=== PATIENT | female | born 1995 | race Caucasian/White ===

== ENCOUNTER 2016-12-10 06:48 | Emergency (ER) | payer OTHER ==
[~2016-12-10 06:48] MED LIST: COLACE 100MG C100 MG PO; IBUPROFEN600 MG PO; NORCO 5-325 TA1 EACH PO
[2016-12-10 07:53] LABS: HEMOGLOBIN 13.5 gm/dl (12.3-15.3); RED BLOOD COUNT 4.77 M/UL (4.00-5.10); WHITE BLOOD COUNT 5.6 K/UL (4.5-11.0)
[2016-12-10 08:21] LABS: BUN/CREATININE RATIO 15 (0-10)
== END 2016-12-10 10:56 | disposition home or self-care (01) ==
LOC: ER1 06:48
PROVIDERS: Emergency Medicine
DX: N20.0 Calculus of kidney (principal); F17.200 Nicotine dependence, unspecified, uncomplicated
CPT/HCPCS: 36415; 74000; 80053; 81001; 82150; 83690; 84703; 85025; 96374; 96375; 99284; J1885; J2405; J7030

== ENCOUNTER 2021-11-09 11:45 | Emergency (ER) | payer OTHER ==
[~2021-11-09 11:45] MED LIST changes: +MACROBID 100 M100 MG PO; +OMNICEF 300 MG300 MG PO; +PYRIDIUM200 MG PO
[2021-11-09 12:20] LABS: HEMOGLOBIN 13.5 gm/dl (12.3-15.3); RED BLOOD COUNT 4.31 M/UL (4.00-5.10); WHITE BLOOD COUNT 13.1 K/UL (4.5-11.0)
[2021-11-09 12:39] LABS: BUN/CREATININE RATIO 23 (0-10)
[2021-11-09] MEDS ORDERED: OMNICEF 300 MG300 MG PO (14:47)
[2021-11-09] MEDS ORDERED: ZOFRAN ODT 4 MG4 MG PO (14:47)
== END 2021-11-09 15:45 | disposition home or self-care (01) ==
LOC: ER1 11:45
PROVIDERS: Emergency Medicine
DX: N20.0 Calculus of kidney (principal)
CPT/HCPCS: 80053; 81001; 84703; 85025; 87086; 96374; 96375; 99284; J0696; J1885; J2270; J2405; J2550

== ENCOUNTER 2021-11-11 11:46 | Emergency (ER) | payer OTHER ==
[~2021-11-11 11:46] MED LIST changes: +ZOFRAN ODT 4 MG4 MG PO
[2021-11-11 12:29] LABS: HEMOGLOBIN 13.5 gm/dl (12.3-15.3); RED BLOOD COUNT 4.29 M/UL (4.00-5.10); WHITE BLOOD COUNT 10.4 K/UL (4.5-11.0)
[2021-11-11 12:42] LABS: BUN/CREATININE RATIO 23 (0-10)
== END 2021-11-11 15:52 | disposition home or self-care (01) ==
LOC: ER1 11:46
PROVIDERS: Emergency Medicine
DX: N23 Unspecified renal colic (principal); F17.210 Nicotine dependence, cigarettes, uncomplicated
CPT/HCPCS: 80048; 81001; 84703; 85025; 96374; 96375; 99284; J1170; J1885; J2270; J2405

== ENCOUNTER 2021-12-13 20:00 | Emergency (ER) | payer OTHER ==
[2021-12-13 20:51] LABS: HEMOGLOBIN 13.6 gm/dl (12.3-15.3); RED BLOOD COUNT 4.29 M/UL (4.00-5.10); WHITE BLOOD COUNT 13.3 K/UL (4.5-11.0)
[2021-12-13 21:41] LABS: BUN/CREATININE RATIO 19 (0-10)
[2021-12-13] MEDS ORDERED: ZOFRAN ODT 4 MG4 MG PO (23:34)
[2021-12-13] MEDS ORDERED: OMNICEF 300 MG300 MG PO (23:34)
== END 2021-12-13 23:50 | disposition home or self-care (01) ==
LOC: ER1 20:00
PROVIDERS: Physician Assistant
DX: N39.0 Urinary tract infection, site not specified (principal); F17.210 Nicotine dependence, cigarettes, uncomplicated
CPT/HCPCS: 80053; 80307; 81001; 84703; 85025; 96374; 96375; 96376; 99284; J0780; J2405

== ENCOUNTER 2021-12-16 10:48 | Emergency (ER) | payer OTHER ==
[2021-12-16 11:35] LABS: HEMOGLOBIN 15.3 gm/dl (12.3-15.3)
[2021-12-16 11:36] LABS: RED BLOOD COUNT 4.78 M/UL (4.00-5.10); WHITE BLOOD COUNT 9.5 K/UL (4.5-11.0)
[2021-12-16 12:10] LABS: BUN/CREATININE RATIO 13 (0-10)
== END 2021-12-16 15:37 | disposition home or self-care (01) ==
LOC: ER1 10:48
PROVIDERS: Emergency Medicine
DX: N20.1 Calculus of ureter (principal); E87.6 Hypokalemia; Z87.442 Personal history of urinary calculi
CPT/HCPCS: 80053; 81001; 82550; 82553; 83605; 83690; 84484; 84703; 85025; 87040; 87086; 96374; 96375; 99284; J0696; J2270; J2405

== ENCOUNTER 2021-12-21 17:40 | Emergency (ER) | payer OTHER ==
[2021-12-21 18:57] LABS: BUN/CREATININE RATIO 16 (0-10)
[2021-12-21 19:44] LABS: HEMOGLOBIN 14.2 gm/dl (12.3-15.3); RED BLOOD COUNT 4.47 M/UL (4.00-5.10); WHITE BLOOD COUNT 8.1 K/UL (4.5-11.0)
== END 2021-12-21 22:10 | disposition home or self-care (01) ==
LOC: ER1 17:40
PROVIDERS: Emergency Medicine
DX: R10.9 Unspecified abdominal pain (principal); R11.2 Nausea with vomiting, unspecified; Z20.822 Contact with and (suspected) exposure to COVID-19; Z87.442 Personal history of urinary calculi
CPT/HCPCS: 80053; 81001; 84703; 85025; 87086; 96374; 96375; 99284; J2270; J2405; J2550; Q9967; U0002